=== PATIENT | female | born 1945 | race Caucasian/White ===

== ENCOUNTER 2020-10-09 16:44 | Emergency (ER) | payer MEDICARE, OTHER ==
[~2020-10-09] VITALS: Ht 167.6 cm; Wt 70.3 kg
[2020-10-09] MEDS ORDERED: ACYCLOVIR 200200 MG PO (17:09)
[2020-10-09] MEDS ORDERED: CALCIUM CARBON500 MG PO (17:09)
[2020-10-09] MEDS ORDERED: AZATHIOPRINE50 MG PO (17:09)
[2020-10-09] MEDS ORDERED: LIPITOR40 MG PO (17:09)
[2020-10-09] MEDS ORDERED: D3-501250 MCG PO (17:10)
[2020-10-09] MEDS ORDERED: PROLIA60 MG/1 ML SUBQ (17:10)
[2020-10-09] MEDS ORDERED: LEXAPRO20 MG PO (17:10)
[2020-10-09] MEDS ORDERED: TIROSINT88 MCG PO (17:11)
[2020-10-09] MEDS ORDERED: RAYOS5 MG PO (17:11)
[2020-10-09] MEDS ORDERED: OMEPRAZOLE40 MG PO (17:11)
[2020-10-09] MEDS ORDERED: BACTRIM DS TAB1 EAC1 PO (17:11)
[2020-10-09] MEDS ORDERED: TACROLIMUS0.5 MG PO (17:12)
[2020-10-09] MEDS ORDERED: VFEND200 MG PO (17:12)
[2020-10-09] MEDS ORDERED: PLAQUENIL200 MG PO (17:12)
[2020-10-09 18:54] VITALS: BP 154/67
[2020-10-09] MEDS ORDERED: PERCOCET 5-3251 EACH PO (18:54)
== END 2020-10-09 18:54 | disposition home or self-care (01) ==
LOC: M.ERS 16:44
DX: I80.8 Phlebitis and thrombophlebitis of other sites (principal); Z79.899 Other long term (current) drug therapy; Z88.1 Allergy status to other antibiotic agents